=== PATIENT | male | born 1955 | race Caucasian/White ===

== ENCOUNTER 2017-01-02 14:03 | Emergency (ER) | payer BC, OTHER ==
[2017-01-02 14:31] LABS: #Basophils 0.1 thou/uL (0.0-0.2); #Eosinphils 0.1 thou/uL (0.0-0.7); #Lymphocytes 2.3 thou/uL (1.20-3.40); #Neutrophils 9.7 thou/uL (1.40-6.50); %Basophils 1.1 % (0.0-1.0); %Eosinophils 0.8 % (0.0-10.0); %Lymphocytes 17.5 % (21.0-51.0); %Monocytes 7.7 % (0.0-10.0); Hematocrit 47.6 % (42.0-52.0); Mean Platelet Volume 9.3 fL (7.4-10.4); Red Blood Cell (RBC) Count 5.02 mill/uL (4.70-6.10); White Blood Cell (WBC) Count 13.2 thou/uL (4.8-10.8)
[2017-01-02] MEDS ORDERED: Adacel (T-DAP) 0.5 ML VIAL ONE (14:31)
[2017-01-02 14:42] LABS: ALT (SGPT) 24 U/L (0-55); AST (SGOT) 29 U/L (5-34); Alkaline Phosphatase 52 U/L (40-150); Anion Gap 17 mmol/L (10-20); BUN (Urea Nitrogen) 19 mg/dL (8.4-25.7); Bilirubin, Total 1.2 mg/dL (0.2-1.2); Calc. Creatinine Clearance 0 mL/min (70-130); Calcium 9.4 mg/dL (7.8-10.44); Carbon Dioxide 22 mmol/L (23-31); Chloride 105 mmol/L (98-107); Estimated GFR-MDRD 57; Globulin 3.1 g/dL (2.4-3.5); Protein, Total 7.6 g/dL (5.8-8.1)
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
[2017-01-02] MEDS ORDERED: Ibuprofen 200 MG TAB ONE (15:14)
[2017-01-02] MEDS ORDERED: Bacitracin Zinc 1 Packet ONE (15:17)
[2017-01-02 16:18] LABS: Bilirubin Negative (Negative); Blood, Urine Moderate (Negative); Glucose, Urine (Dipstick) Negative (Negative); Ketone, Urine Negative (Negative); Nitrite Negative (Negative); Protein, Urine (Dipstick) Trace mg/dL (Neg-Trace); Urobilinogen 0.2 mg/dL (0.2-1.0)
[2017-01-02 16:53] LABS: Squamous Epithelial 0-3 HPF (0-3)
== END 2017-01-02 16:19 | disposition home or self-care (01) ==
LOC: NAV ERS 14:03
DX: S06.0X9A Concussion with loss of consciousness of unspecified duration, initial encounter (principal); S42.122A Displaced fracture of acromial process, left shoulder, initial encounter for closed fracture; S40.022A Contusion of left upper arm, initial encounter; S90.31XA Contusion of right foot, initial encounter; I10 Essential (primary) hypertension; J45.909 Unspecified asthma, uncomplicated; E78.5 Hyperlipidemia, unspecified; E78.00 Pure hypercholesterolemia, unspecified; Z79.899 Other long term (current) drug therapy; V89.2XXA Person injured in unspecified motor-vehicle accident, traffic, initial encounter
CPT/HCPCS: 70450; 72125; 80053; 80307; 81003; 81015; 85025; 90471; 90715; 96360